=== PATIENT | male | born 1970 | race Caucasian/White ===

== ENCOUNTER 2021-12-04 18:06 | Emergency (ER) | payer OTHER, SELFPAY ==
--- NOTE | ~2021-12-04 | XR_ITS ---
EXAM: XR elbow LT min 3V DATE: 12/04/2021 18:59 HISTORY: left elbow pain and swelling, no injury . COMPARISON: None available. FINDINGS: Normal mineralization. No fracture or dislocation. No lytic or blastic lesion. Joint space s are maintained. No erosion or periosteal change. Soft tissue swelling over the olecranon. IMPRESSION: No acute osseous finding the left elbow. Left olecranon soft tissue swelling/bursitis. Reviewed, dictated and finalized at location K.
[2021-12-04 18:23] VITALS: BP 117/90; PULSE 95; RESP 18; TEMP 36.9; O2SAT 98
--- NOTE | 2021-12-04 18:51 | ED.GENADULT ---
HPI - General Adult General Chief complaint: Dental/Oral Stated complaint: swollen lt elbow,mouth pain History of Present Illness HPI narrative: 51 y/o male. PMHx RLS. Presents to [facility] clinic this evening with multiple complaints: 1: He reports increased swelling and tenderness overlying his left elbow for the past 72 hours. -Client denies acute injury of falls. -He does tell me that he has had a recent dental procedure, and may have had prolonged pressure on his elbow while in the dental chair. -No fever. -No bony pain. -No sensory disturbance or weakness. 2: Client also reports increased pain to his upper dental line, S/P recent tooth extraction as aforementioned. -He tells me that he had multiple upper teeth pulled @ [facility] in [place] on 11/23/2021. -He was unable to fill his Amoxicillin or NSAID 2/2 a financial concern, so he has not yet started this regimen. -No fever as above. -No nights sweats, malaise, fatigue, chills, myalgia. -chest pain, dyspnea. He is w/o additional acute c/o upon PE. Related Data Home Medications Medication Instructions Recorded Confirmed albuterol sulfate 90 mcg/actuation 1 inh inhalation DIRECTED 12/04/21 12/04/21 aerosol inhaler fluticasone propionate 110 1 inh inhalation DIRECTED 12/04/21 12/04/21 mcg/actuation HFA aerosol inhaler (Flovent HFA) trazodone 50 mg tablet 50 mg HS 12/04/21 12/04/21 Allergies Allergy/AdvReac Type Severity Reaction Status Date / Time ampicillin Allergy Rash Verified 12/04/21 18:37 Review of Systems Review of Systems: CONSTITUTIONAL: Denies fever, chills, sweats. EYES: Denies visual changes, redness, discharge. ENT: Denies rhinorrhea, congestion, sore throat, otalgia. + Dental pain, recent dental work, unable to pay for medication. CARDIOVASCULAR: Denies chest pain, palpitations, edema. RESPIRATORY: Denies dyspnea, wheezing, cough. GASTROINTESTINAL: Denies abdominal pain, nausea, vomiting, diarrhea. GENITOURINARY: Denies dysuria, hematuria, abnormal discharge SKIN: Denies rash or itching. MUSCULOSKELETAL: LT elbow swelling. Denies joint pain or myalgia. NEUROLOGIC: Denies numbness, or focal weakness. PSYCHIATRIC: Denies anxiety or depression. Exam Narrative: GENERAL: This is a well-nourished, well-developed adult, in no apparent distress. HEAD: normocephalic. EYES: Sclera clear/white. EARS: External ears normal. NOSE: External nose normal. THROAT: Mucous membranes moist. With full extraction of upper frontal teeth. Minimal soft tissue and gumline tenderness. No discoloration, fluctuance, or discharge. Uvula midline. Palate soft and non-tender. Posterior pharynx clear. NECK: Neck supple, non-tender without lymphadenopathy, masses or thyromegaly. No rigidity. CARDIOVASCULAR: Regular rate and rhythm without murmurs, gallops, or rubs. Pulses and cap refill intact LUE. RESPIRATORY: Clear to auscultation. Breath sounds equal bilaterally. No wheezes, rales, or rhonchi. GASTROINTESTINAL: Abdomen soft, non-tender, nondistended. SKIN: warm, intact with no suspicious lesions or rash, good texture and turgor. NEURO: Alert, active, and age appropriate. No focal neurologic deficits. Good sensation and discrimination LUE. EXTREMITIES: With soft tissue swelling immediately overlying LT olecranon process. No warmth, erythema, or wounds. No FB. Client exhibits full and unrestricted ROM. Remainder of exam negative. Course Course Level of Care: Express Care Visit Vital Signs Vital signs: Vital Signs Temperature 36.9 C 12/04/21 18:23 Pulse Rate 95 12/04/21 18:23 Respiratory Rate 18 12/04/21 18:23 Blood Pressure 117/90 12/04/21 18:23 Pulse Oximetry 98 12/04/21 18:23 Oxygen Delivery Room Air 12/04/21 18:23 Temperature 36.9 C 12/04/21 18:23 Pulse Rate 95 12/04/21 18:23 Respiratory Rate 18 12/04/21 18:23 Blood Pressure 117/90 12/04/21 18:23 Pulse Oximetry 98 12/04/21 1
== END 2021-12-04 19:19 | disposition home or self-care (01) ==
PROVIDERS: Emergency Provider Nurse Practitioner Adult Health; PCP Physician Assistant
DX: G89.18 Other acute postprocedural pain (principal); M71.9 Bursopathy, unspecified
CPT/HCPCS: 73080; 99213; G0463